=== PATIENT | female | born 1960 | race Caucasian/White ===

== ENCOUNTER 2017-06-07 04:01 | Emergency (ER) | payer OTHER ==
--- NOTE | 2017-06-07 04:13 | ED NECK/BACK PAIN COMPLAINT ---
History of Present Illness General Chief Complaint: Low Back Pain/Injury Stated Complaint: LOWER BACK PAIN Source: patient Exam Limitations: no limitations Vital Signs & Intake/Output Vital Signs & Intake/Output Vital Signs Date Time Temp Pulse Resp B/P B/P Pulse O2 O2 Flow FiO2 Mean Ox Delivery Rate 06/07 0425 98 Room Air Room Air 06/07 0407 97.4 81 18 122/69 95 Room Air Allergies Coded Allergies: walnut (Severe, DIFF BREATHING 06/07/17) Reconcile Medications Ibuprofen 800 MG TABLET 1 TAB PO TID PRN pain Ondansetron (Zofran Odt) 4 MG TAB.RAPDIS 1 TAB SL TID PRN nausea Oxycodone HCl/Acetaminophen (Percocet 5-325 MG Tablet) 5 MG-325 MG TABLET 1 TAB PO 4XDP PRN PAIN TEN...[id number] Triage Note: 57YO FEMALE TO TRIAGE W/CO R FLANK PAIN THAT RADIATES TO R ABD THAT AWOKE HER TODAY. ALSO CO NAUSEA Triage Nurses Notes Reviewed? yes Onset: Abrupt Duration: hour(s):, waxing and waning Timing: single episode today Quality/Severity: moderate Location: right flank Radiation: right flank Context: pt awoke with pain Loss of Consciousness: no loss of consciousness Modifying Factors: movement Associated Symptoms: nausea/vomiting HPI: 57 yo woman in prior good health presents with right flank pain for the past 2-3 hours. "I was sleeping and the pain woke me up... it really hurts." No diarrhea, chills, fever, dyspnea, chest pain. She is otherwise well. Past History Travel History Traveled to [place] past 21 day No Medical History Any Pertinent Medical History? see below for history Neurological: NONE EENT: NONE Cardiovascular: hyperlipidemia Respiratory: NONE Gastrointestinal: NONE Hepatic: NONE Renal: NONE Musculoskeletal: NONE Psychiatric: NONE Endocrine: NONE Surgical History Surgical History: none Psychosocial History What is your primary language Luxembourgish Tobacco Use: Refused to answer Family History Hx Contributory? No Review of Systems Review of Systems Constitutional: Reports: no symptoms. Eyes: Reports: no symptoms. Ears, Nose, Throat, Mouth: Reports: no symptoms. Respiratory: Reports: no symptoms. Cardiovascular: Reports: no symptoms. Gastrointestinal/Abdominal: Reports: no symptoms. Musculoskeletal: Reports: no symptoms. Skin: Reports: no symptoms. Neurological/Psychological: Reports: no symptoms. All Other Systems: Reviewed and Negative Physical Exam Physical Exam General Appearance: well developed/nourished, mild distress Head: atraumatic Eyes: Bilateral: PERRL, EOMI. Ears, Nose, Throat, Mouth: hearing grossly normal Neck: normal inspection, supple, full range of motion, normal alignment Respiratory: normal breath sounds Cardiovascular: regular rate/rhythm Gastrointestinal: soft, non-tender Back: normal inspection, normal range of motion Extremities: normal range of motion Neurologic/Psych: awake, alert, oriented x 3, normal mood/affect Skin: intact, normal color, warm/dry Core Measures CVA/TIA Diagnosis: No Progress Differential Diagnosis: pyelo/UTI, sciatica, ureterolithiasis Plan of Care: Orders Procedure Date/time Status URINALYSIS 06/07 415 Complete LIPASE 06/07 415 Complete HEPATIC FUNCTION PANEL 06/07 415 Complete CBC WITHOUT DIFFERENTIAL 06/07 415 Complete BASIC METABOLIC PANEL 06/07 415 Complete AMYLASE 06/07 415 Complete Laboratory Tests 06/07/17 0615: Urinalysis LIGHT H, Urine Color YEL, Urine Clarity HAZY H, Urine pH 5.5, Ur Specific [place] >= 1.030, Urine Protein TRACE H, Urine Ketones NEG, Urine Nitrite NEG, Urine Bilirubin NEG, Urine Urobilinogen 0.2, Ur Leukocyte Esterase TRACE H, Ur Microscopic SEDIMENT EXAMINED, Urine RBC 10-15 H, Urine WBC 1-3 H , Ur Epithelial Cells FEW, Urine Hemoglobin LARGE H, Urine Glucose NEG 06/07/17 0425: Anion Gap 12, Estimated GFR > 60, BUN/Creatinine Ratio 20.0, Glucose 128 H, Calcium 9.7, Total Bilirubin 0.6, Direct Bilirubin 0.3, AST 32, ALT 37, Alkaline Phosphatase 67, Total Protein 7.7, Albumin 4.2, Amylase 66, Lipase 77, CBC w Diff NO MAN DIFF REQ, RBC 4.86, MCV 87.2, MCH 28.9, MCHC 33.1, RDW 13.5, MPV 8.6 , Gran % 69.0, Lymphocytes % 23.3, Monocytes % 4.8, Eosinophils % 2.2, Basophils % 0.7, Absolute Granulocytes 6.1, Absolute Lymphocytes 2.1, Absolute Monocytes 0.4, Absolute Eosinophils 0.2, Absolute Basophils 0.1 Diagnostic Imaging: Viewed by Me: CT Scan. Discussed w/RAD: CT Scan. Radiology Impression: PATIENT: MITZI KELLEY PRESENT AGE: 57 PATIENT ACCOUNT NO: [id number] : 58 LOCATION: [facility] ORDERING PHYSICIAN: Jericho uRbio MD SERVICE DATE: 06/07/17 EXAM TYPE: CAT - CT ABD & PELVIS W/O IV CONTRAS EXAMINATION: CT ABDOMEN AND PELVIS WITHOUT CONTRAST CLINICAL INFORMATION: Right flank pain COMPARISON: None TECHNIQUE: Multidetector volumetric imaging was performed from the superior aspect of the liver through the pubic symphysis. Sagittal and coronal reformatted images were obtained on the technologist's workstation. DLP: 336 mGy-cm FINDINGS: LUNG BASES : Linear left basilar atelectasis. LIVER, GALLBLADDER, AND BILIARY TREE: The liver is normal in size, shape, and attenuation. No focal hepatic lesion or biliary ductal dilatation is present. Cholecystectomy. PANCREAS: Unremarkable. SPLEEN: Unremarkable. ADRENAL GLANDS: Unremarkable. KIDNEYS AND URETERS: The kidneys are normal in size, shape, and attenuation. Mild fullness of the right collecting system. There is a 0.2 cm calculus at the right ureterovesicular junction. No additional renal calculi identified. BLADDER: Unremarkable. GASTROINTESTINAL TRACT: The small and large bowel are unremarkable. The appendix is unremarkable. ABDOMINAL WALL: No significant hernia is appreciated. LYMPH NODES: Normal. VASCULAR: Unremarkable. PELVIC VISCERA: The uterus and adnexa are unremarkable. OSSEOUS STRUCTURES: No acute or suspicious osseous abnormality. IMPRESSION: Mild fullness of the right collecting system with a 0.2 cm calculus at the right UVJ. DICTATED BY: Joel Baker MD DATE/TIME DICTATED:06/07/17443 SPECIAL INVESTIGATOR:SUSAN DATE/TIME TRANSCRIBED:06/07/17443 CONFIDENTIAL, DO NOT COPY WITHOUT APPROPRIATE AUTHORIZATION. <Electronically signed in Other Vendor System> SIGNED BY: Joel Baker MD 06/07/17 045 Departure Departure Disposition: HOME OR SELF CARE Condition: Stable Clinical Impression Primary Impression: Renal colic on right side Referrals: Zena SARMIENTO,Richard Chopra (PCP/Family) Departure Forms: Customer Survey General Discharge Information Prescriptions: Current Visit Scripts Oxycodone HCl/Acetaminophen (Percocet 5-325 MG Tablet) 1 TAB PO 4XDP PRN PAIN #10 TAB TEN...[id number] Ibuprofen 1 TAB PO TID PRN pain #60 TAB Ondansetron (Zofran Odt) 1 TAB SL TID PRN nausea #10 TAB Comments 06/07/17, 5:29... pt still uncomfortable and nauseous... 2mm kidney stone noted... will continue supportive medications, await urinalysis 06/07/17, 6:42AM... Pt feeling better... discussed at length... pt safe for discharge and will follow up with urologist. #60 TAB Ondansetron (Zofran Odt) 1 TAB SL TID PRN nausea #10 TAB Comments 06/07/17, 5:29... pt still uncomfortable and nauseous... 2mm kidney stone noted... will continue supportive medications, await urinalysis
[2017-06-07 04:42] LABS: ABSOLUTE BASOPHIL COUNT 0.1 /CUMM (0.0-0.2); ABSOLUTE EOSINOPHIL COUNT 0.2 /CUMM (0.0-0.7); ABSOLUTE GRANULOCYTE CT 6.1 /CUMM (1.4-6.5); ABSOLUTE LYMPH COUNT 2.1 /CUMM (1.2-3.4); ABSOLUTE MONOCYTE COUNT 0.4 /CUMM (0.10-0.60); BASOPHIL % 0.7 % (0.0-2.0); EOSINOPHIL % 2.2 % (0-5); HEMATOCRIT 42.4 % (37-47); MEAN CORPUSCULAR HGB 28.9 PG (27.0-31.0); MEAN CORPUSCULAR HGB CONC 33.1 G/DL (33.0-37.0); MEAN CORPUSCULAR VOLUME 87.2 FL (81.0-99.0); MEAN PLATELET VOLUME 8.6 FL (7.4-10.4); PLATELET COUNT 307 /CUMM (130-400); RBC DISTRIBUTION WIDTH 13.5 % (11.5-14.5); RED BLOOD CELL CT 4.86 /CUMM (4.20-5.40); WHITE BLOOD CELL COUNT 8.8 /CUMM (4.8-10.8)
--- NOTE | 2017-06-07 04:50 | CT SCAN REPORT ---
EXAMINATION: CT ABDOMEN AND PELVIS WITHOUT CONTRAST CLINICAL INFORMATION: Right flank pain COMPARISON: None TECHNIQUE: Multidetector volumetric imaging was performed from the superior aspect of the liver through the pubic symphysis. Sagittal and coronal reformatted images were obtained on the technologist's workstation. DLP: 336 mGy-cm FINDINGS: LUNG BASES: Linear left basilar atelectasis. LIVER, GALLBLADDER, AND BILIARY TREE: The liver is normal in size, shape, and attenuation. No focal hepatic lesion or biliary ductal dilatation is present. Cholecystectomy. PANCREAS: Unremarkable. SPLEEN: Unremarkable. ADRENAL GLANDS: Unremarkable. KIDNEYS AND URETERS: The kidneys are normal in size, shape, and attenuation. Mild fullness of the right collecting system. There is a 0.2 cm calculus at the right ureterovesicular junction. No additional renal calculi identified. BLADDER: Unremarkable. GASTROINTESTINAL TRACT: The small and large bowel are unremarkable. The appendix is unremarkable. ABDOMINAL WALL: No significant hernia is appreciated. LYMPH NODES: Normal. VASCULAR: Unremarkable. PELVIC VISCERA: The uterus and adnexa are unremarkable. OSSEOUS STRUCTURES: No acute or suspicious osseous abnormality. IMPRESSION: Mild fullness of the right collecting system with a 0.2 cm calculus at the right UVJ.
[2017-06-07] MEDS ORDERED: PERCOCET 5-3251 EACH PO ×2 (04:58)
[2017-06-07] MEDS ORDERED: IBUPROFEN800 M1 PO (04:58)
[2017-06-07] MEDS ORDERED: ZOFRAN ODT4 M1 SL (05:00)
[2017-06-07 06:49] VITALS: BP 116/78
== END 2017-06-07 06:50 ==
LOC: ERH 04:01
PROVIDERS: Pediatrics
DX: N23 Unspecified renal colic (principal); R10.9 Unspecified abdominal pain
CPT/HCPCS: 74176; 81001; 96374; 96375; 96376; J0131; J1885; J2405; J2550